=== PATIENT | female | born 1990 | race Caucasian/White ===

== ENCOUNTER 2019-11-26 22:21 | Emergency (ER) | payer SELFPAY ==
[~2019-11-26] VITALS: Ht 170.2 cm; Wt 133.8 kg
[2019-11-26] MEDS ORDERED: IBUP400 PO (22:54)
[2019-11-26] MEDS ORDERED: Veetids 500500 MG PO (22:54)
== END 2019-11-26 23:05 | disposition home or self-care (01) ==
LOC: ER 22:21
DX: K04.7 Periapical abscess without sinus (principal); K04.01 Reversible pulpitis
CPT/HCPCS: 99282